=== PATIENT | male | born 1965 | race African-American/Black ===

== ENCOUNTER 2021-09-25 20:05 | Inpatient (IN) | payer OTHER ==
[~2021-09-25] VITALS: Ht 185.4 cm; Wt 98.5 kg
[2021-09-25] MEDS ORDERED: ACCU-CHEK COMFORT CURVE STRIP VI ONE (20:15)
[2021-09-25] MEDS ORDERED: SODIUM CHLORIDE 0.9% 1,000 ML IV ONE (20:45)
[2021-09-25] MEDS ORDERED: LORazepam 2MG/ML-1ML VIAL IV ONE (20:45)
[2021-09-25 20:55] LABS: Basophils # (auto) 0 10 ^3/uL (0-0.2); Basophils % (auto) 0.4 % (0.0-2.0); Eosinophils # (auto) 0.1 10 ^3/uL (0-0.8); Eosinophils % (auto) 1.7 % (0.0-7.0); Hematocrit 45.5 % (41.0-53.0); Hemoglobin 15.2 g/dL (13.5-17.5); Lymphocytes # (auto) 1.5 10 ^3/uL (0.4-5.4); Lymphocytes % (auto) 19.2 % (10.0-50.0); Mean Corpuscular Hemoglobin 31.9 pg (28.0-32.0); Mean Corpuscular Hgb Conc. 33.5 g/dL (32.0-36.0); Mean Corpuscular Volume 95.2 fL (80.0-100.0); Monocytes # (auto) 0.8 10 ^3/uL (0-1.3); Monocytes % (auto) 10.1 % (0.0-12.0); Neutrophils # (auto) 5.4 10 ^3/uL (1.6-8.6); Neutrophils % (auto) 68.6 % (37.0-80.0); Nucleated Red Blood Cells % 0.1 %; Red Blood Cells 4.78 10^6/uL (4.5-5.90); Red Cell Distribution Width 12.9 % (11.8-14.3); White Blood Cell 7.9 10^3/uL (4.4-10.8)
[2021-09-25 21:14] LABS: INR 1.05 (0.9-1.15); Partial Thromboplastin Time 26.6 sec (23.6-33.0)
[2021-09-25 21:14] LABS: Albumin 3.5 g/dL (3.4-5.0); Anion Gap 7 (5-15); Blood Alcohol < 3.0 mg/dL (0-5); Blood Urea Nitrogen 20 mg/dL (7-18); Calcium 8.9 mg/dL (8.5-10.1); Carbon Dioxide 28 mmol/L (21-32); Chloride 107 mmol/L (98-107); Glucose 187 mg/dL (74-106); Potassium 3.8 mmol/L (3.5-5.1); Sodium 142 mmol/L (136-145)
[2021-09-25 21:16] LABS: Alanine Aminotransferase 29 U/L (16-61); Aspartate Aminotransferase 11 U/L (15-37); BUN/Creatinine Ratio 12.4; GFR African American 57 mL/min; GFR Non-African American 47 mL/min
[2021-09-25 21:18] LABS: Alkaline Phosphatase 121 U/L (45-117); Bilirubin, Total 0.3 mg/dL (0.2-1.0); Total Protein 7.3 g/dL (6.4-8.2)
[2021-09-25] MEDS ORDERED: NIFEdipine 10 MG CAP PO ONE (23:00)
[2021-09-26 00:46] LABS: Urine Bacteria NONE SEEN /hpf (None Seen); Urine Blood Negative /uL (Negative); Urine Hyaline Cast FEW /lpf (0 - 2); Urine Mucus FEW (None Seen); Urine Specific Gravity 1.032 (1.001-1.035); Urine WBC 2 /hpf (0 - 3)
[2021-09-26 01:00] LABS: Alcohol, Urine < 3.0 mg/dL (0-10); Amphetamine Screen, Urine NEGATIVE (NEGATIVE); Barbiturate Scree,Urine NEGATIVE (NEGATIVE); Benzodiazephine Screen, Urine NEGATIVE (NEGATIVE); Cannabinoid Screen, Urine NEGATIVE (NEGATIVE); Cocaine Screen, Urine NEGATIVE (NEGATIVE); Opiate Scree,Urine NEGATIVE (NEGATIVE); Phencyclidine Screen, Urine NEGATIVE (NEGATIVE)
[2021-09-26] MEDS ORDERED: DEXTROSE (50%) 50ML SYRG IV PRN (06:15)
[2021-09-26] MEDS ORDERED: MORPHINE SULFATE INJECTION 2 MG/ML SYRG IV PRN (06:15)
[2021-09-26] MEDS ORDERED: NITROGLYCERIN 0.4 MG SL TAB SL PRN (06:15)
[2021-09-26] MEDS ORDERED: ONDANSETRON HCL 4 MG/2 ML VIAL IV PRN (06:15)
[2021-09-26] MEDS ORDERED: ACETAMINOPHEN 325 MG TAB PO PRN (06:15)
[2021-09-26] MEDS: InsuLIN REG 1unit/0.01ml Soln (100units/ml) SC SCH ×4 (07:52→23:24)
[2021-09-26] MEDS: ACCU-CHEK COMFORT CURVE STRIP VI SCH ×4 (07:52→22:37)
[2021-09-26] MEDS: cloNIDine HCL 0.1 MG TAB PO PRN ×3 (08:27→17:44)
[2021-09-26] MEDS: PANTOPRAZOLE 40 MG TAB PO SCH (09:57)
[2021-09-26] MEDS: CLOPIDOGREL BISULFATE 75 MG TAB PO SCH (09:57)
[2021-09-26] MEDS: LISINOPRIL 20 MG TAB PO SCH (09:57)
[2021-09-26] MEDS ORDERED: ATOR-47 PO (15:37)
[2021-09-26] MEDS ORDERED: GLIP5TAB12 PO (15:37)
[2021-09-26] MEDS ORDERED: CYAN-17 PO (15:37)
[2021-09-26] MEDS ORDERED: CLOP75TA70 PO (15:37)
[2021-09-26] MEDS ORDERED: METF-370 PO (15:37)
[2021-09-26] MEDS ORDERED: LISI20TA28 PO (15:37)
[2021-09-26 17:00] VITALS: BP 170/104
[2021-09-26 18:46] VITALS: BP 166/101
[2021-09-26] MEDS ORDERED: LORazepam 2MG/ML-1ML VIAL IV ONE (19:00)
[2021-09-26] MEDS ORDERED: LABETALOL HCL 5 MG/ML 4ML SYRINGE IV ONE (19:00)
[2021-09-26] MEDS ORDERED: LORazepam 2MG/ML-1ML VIAL IV PRN (21:30)
[2021-09-26] MEDS ORDERED: HALOPERIDOL LACTATE 5 MG/ML INJ VIAL IM PRN (21:30)
[2021-09-26 22:00] VITALS: BP 176/104
[2021-09-26] MEDS: ATORVASTATIN 20 MG TAB PO SCH (22:36)
[2021-09-26] MEDS: LACOSAMIDE 50 MG TAB PO SCH (22:36)
[2021-09-26 22:55] LABS: Cholesterol 181 mg/dL (< 200); HDL Cholesterol 34 mg/dL (40-59); LDL Cholesterol 126 mg/dL (< 100); Triglycerides 185 mg/dL (< 150)
[2021-09-27] VITALS (7 sets, daily range): BP systolic 143–190; BP diastolic 84–130
[2021-09-27] MEDS: cloNIDine HCL 0.1 MG TAB PO PRN ×2 (01:10→14:33)
[2021-09-27 06:02] LABS: Basophils # (auto) 0 10 ^3/uL (0-0.2); Basophils % (auto) 0.3 % (0.0-2.0); Eosinophils # (auto) 0.1 10 ^3/uL (0-0.8); Eosinophils % (auto) 2.3 % (0.0-7.0); Hematocrit 41.8 % (41.0-53.0); Hemoglobin 14.1 g/dL (13.5-17.5); Lymphocytes # (auto) 1.5 10 ^3/uL (0.4-5.4); Lymphocytes % (auto) 26.7 % (10.0-50.0); Mean Corpuscular Hemoglobin 32.1 pg (28.0-32.0); Mean Corpuscular Hgb Conc. 33.6 g/dL (32.0-36.0); Mean Corpuscular Volume 95.4 fL (80.0-100.0); Monocytes # (auto) 0.5 10 ^3/uL (0-1.3); Monocytes % (auto) 8.2 % (0.0-12.0); Neutrophils # (auto) 3.5 10 ^3/uL (1.6-8.6); Neutrophils % (auto) 62.5 % (37.0-80.0); Red Blood Cells 4.38 10^6/uL (4.5-5.90); Red Cell Distribution Width 12.9 % (11.8-14.3); White Blood Cell 5.7 10^3/uL (4.4-10.8)
[2021-09-27 06:22] LABS: Calcium 8.6 mg/dL (8.5-10.1)
[2021-09-27 06:25] LABS: BUN/Creatinine Ratio 17.5
[2021-09-27] MEDS: ACCU-CHEK COMFORT CURVE STRIP VI SCH ×4 (06:39→21:25)
[2021-09-27] MEDS: hydrALAZINE HCL 20 MG/ML VL IV PRN ×2 (06:39→16:25)
[2021-09-27] MEDS: InsuLIN REG 1unit/0.01ml Soln (100units/ml) SC SCH ×4 (06:54→21:25)
[2021-09-27] MEDS: PANTOPRAZOLE 40 MG TAB PO SCH (09:01)
[2021-09-27] MEDS: CLOPIDOGREL BISULFATE 75 MG TAB PO SCH (09:01)
[2021-09-27] MEDS: LACOSAMIDE 50 MG TAB PO SCH ×2 (09:01→21:25)
[2021-09-27] MEDS: LISINOPRIL 20 MG TAB PO SCH (09:02)
[2021-09-27] MEDS ORDERED: LORazepam 2MG/ML-1ML VIAL IV PRN (18:15)
[2021-09-27] MEDS: SODIUM CHLORIDE 0.9% 1,000 ML IV SCH (18:51)
[2021-09-27] MEDS: ATORVASTATIN 20 MG TAB PO SCH (21:25)
[2021-09-28 05:00] VITALS: BP 144/88
[2021-09-28] MEDS: InsuLIN REG 1unit/0.01ml Soln (100units/ml) SC SCH ×4 (06:40→21:23)
[2021-09-28] MEDS: SODIUM CHLORIDE 0.9% 1,000 ML IV SCH ×2 (06:46→14:15)
[2021-09-28] MEDS: ACCU-CHEK COMFORT CURVE STRIP VI SCH ×4 (06:46→21:27)
[2021-09-28 09:00] VITALS: BP 166/95
[2021-09-28] MEDS: PANTOPRAZOLE 40 MG TAB PO SCH (09:56)
[2021-09-28] MEDS: LISINOPRIL 20 MG TAB PO SCH (09:56)
[2021-09-28] MEDS: LACOSAMIDE 50 MG TAB PO SCH ×2 (09:56→21:22)
[2021-09-28] MEDS: CLOPIDOGREL BISULFATE 75 MG TAB PO SCH (09:56)
[2021-09-28] MEDS ORDERED: GADOTERATE MEG 10 MMOL/20ml INJ (0.5MMOL/ml) IV ONE (11:32)
[2021-09-28 13:00] VITALS: BP 194/113
[2021-09-28] MEDS: hydrALAZINE HCL 20 MG/ML VL IV PRN (14:45)
[2021-09-28] MEDS: cloNIDine HCL 0.1 MG TAB PO PRN (15:41)
[2021-09-28 17:00] VITALS: BP 164/99
[2021-09-28] MEDS: ATORVASTATIN 20 MG TAB PO SCH (21:11)
[2021-09-28 22:00] VITALS: BP 144/95
[2021-09-29] MEDS: ACCU-CHEK COMFORT CURVE STRIP VI SCH (07:26)
[2021-09-29] MEDS: InsuLIN REG 1unit/0.01ml Soln (100units/ml) SC SCH (07:30)
[2021-09-30] MEDS ORDERED: LISI40TA11 PO (09:34)
[2021-09-30] MEDS ORDERED: LISI20TA28 PO (18:28)
[2021-10-01 06:06] LABS: RPR Non Reactive (Non Reactive)
== END 2021-09-29 08:50 | disposition left against medical advice (07) | DRG 64 ==
LOC: ER 20:08 → TELE 09-26 06:12 → TELE-WESTW 09-26 10:31
PROVIDERS: ADMIT Nurse Practitioner; ATTEND Internal Medicine
DX: I63.9 Cerebral infarction, unspecified (principal); G93.41 Metabolic encephalopathy; G40.209 Localization-related (focal) (partial) symptomatic epilepsy and epileptic syndromes with complex partial seizures, not intractable, without status epilepticus; I13.0 Hypertensive heart and chronic kidney disease with heart failure and stage 1 through stage 4 chronic kidney disease, or unspecified chronic kidney disease; I50.20 Unspecified systolic (congestive) heart failure; E78.5 Hyperlipidemia, unspecified; Z20.822 Contact with and (suspected) exposure to COVID-19; E11.22 Type 2 diabetes mellitus with diabetic chronic kidney disease; F17.210 Nicotine dependence, cigarettes, uncomplicated; Z53.29 Procedure and treatment not carried out because of patient's decision for other reasons; E78.00 Pure hypercholesterolemia, unspecified; E66.01 Morbid (severe) obesity due to excess calories; N18.9 Chronic kidney disease, unspecified; Z79.02 Long term (current) use of antithrombotics/antiplatelets; Z79.899 Other long term (current) drug therapy; Z80.1 Family history of malignant neoplasm of trachea, bronchus and lung; Z82.49 Family history of ischemic heart disease and other diseases of the circulatory system; Z83.3 Family history of diabetes mellitus; Z86.14 Personal history of Methicillin resistant Staphylococcus aureus infection; Z86.16 Personal history of COVID-19
CPT/HCPCS: 36415; 70450; 70551; 70553; 71045; 80048; 80053; 80061; 80307; 80320; 81001; 82962; 83735; 84484; 85025; 85610; 85730; 86592; 87426; 93005; 93306; 93886; 95819; 96361; 96374; 97116; 97163; G0378; J1815; J3490

== ENCOUNTER 2021-09-29 18:56 | Inpatient (IN) | payer OTHER ==
[~2021-09-29] VITALS: Ht 190.5 cm; Wt 87.3 kg
[~2021-09-29 18:56] MED LIST: ATOR-47 PO; CLOP75TA70 PO; CYAN-17 PO; GLIP5TAB12 PO; LISI20TA28 PO; METF-370 PO
[2021-09-29 21:46] LABS: Basophils # (auto) 0 10 ^3/uL (0-0.2); Basophils % (auto) 0.6 % (0.0-2.0); Eosinophils # (auto) 0.2 10 ^3/uL (0-0.8); Hematocrit 45.2 % (41.0-53.0); Hemoglobin 15.2 g/dL (13.5-17.5); Lymphocytes # (auto) 1.6 10 ^3/uL (0.4-5.4); Lymphocytes % (auto) 21.7 % (10.0-50.0); Mean Corpuscular Hemoglobin 31.9 pg (28.0-32.0); Mean Corpuscular Hgb Conc. 33.7 g/dL (32.0-36.0); Mean Corpuscular Volume 94.7 fL (80.0-100.0); Monocytes # (auto) 0.7 10 ^3/uL (0-1.3); Monocytes % (auto) 9.1 % (0.0-12.0); Neutrophils % (auto) 66.6 % (37.0-80.0); Nucleated Red Blood Cells % 0.2 %; Red Blood Cells 4.77 10^6/uL (4.5-5.90); White Blood Cell 7.5 10^3/uL (4.4-10.8)
[2021-09-29 22:03] LABS: Albumin 3.9 g/dL (3.4-5.0); Calcium 9.1 mg/dL (8.5-10.1); Magnesium 2.3 mg/dL (1.6-2.6); Potassium 4.2 mmol/L (3.5-5.1)
[2021-09-29 22:08] LABS: BUN/Creatinine Ratio 14.2; Bilirubin, Total 0.2 mg/dL (0.2-1.0); Total Protein 7.8 g/dL (6.4-8.2)
[2021-09-29] MEDS ORDERED: NITROGLYCERIN 0.4 MG SL TAB SL PRN (23:00)
[2021-09-29] MEDS ORDERED: MORPHINE SULFATE INJECTION 2 MG/ML SYRG IV PRN (23:00)
[2021-09-29] MEDS ORDERED: DOCUSATE SOD 100 MG CAP PO PRN (23:00)
[2021-09-29] MEDS ORDERED: TEMAZEPAM 15 MG CAP PO PRN (23:00)
[2021-09-30 06:16] LABS: Barbiturate Scree,Urine NEGATIVE (NEGATIVE); Benzodiazephine Screen, Urine NEGATIVE (NEGATIVE); Cannabinoid Screen, Urine NEGATIVE (NEGATIVE)
[2021-09-30 06:19] LABS: Alcohol, Urine < 3.0 mg/dL (0-10); Amphetamine Screen, Urine NEGATIVE (NEGATIVE); Cocaine Screen, Urine NEGATIVE (NEGATIVE); Opiate Scree,Urine NEGATIVE (NEGATIVE); Phencyclidine Screen, Urine NEGATIVE (NEGATIVE)
[2021-09-30] MEDS ORDERED: ACETAMINOPHEN 325 MG TAB PO ONE (09:15)
[2021-09-30] MEDS ORDERED: ACETAMINOPHEN 325 MG TAB PO PRN (09:15)
[2021-09-30] MEDS ORDERED: LISI40TA11 PO (09:34)
[2021-09-30] MEDS: hydrALAZINE HCL 20 MG/ML VL IV PRN ×2 (09:36→22:41)
[2021-09-30] MEDS: ENOXAPARIN SOD 40 MG/0.4 ML SYRINGE SC SCH (09:37)
[2021-09-30 09:38] LABS: Albumin 3.7 g/dL (3.4-5.0); Calcium 9.4 mg/dL (8.5-10.1); Potassium 4.8 mmol/L (3.5-5.1)
[2021-09-30 09:39] LABS: Basophils # (auto) 0 10 ^3/uL (0-0.2); Basophils % (auto) 0.2 % (0.0-2.0); Eosinophils # (auto) 0.1 10 ^3/uL (0-0.8); Eosinophils % (auto) 0.9 % (0.0-7.0); Hematocrit 46.2 % (41.0-53.0); Hemoglobin 15.7 g/dL (13.5-17.5); Lymphocytes # (auto) 0.9 10 ^3/uL (0.4-5.4); Lymphocytes % (auto) 10.1 % (10.0-50.0); Mean Corpuscular Hemoglobin 32.7 pg (28.0-32.0); Mean Corpuscular Volume 96.3 fL (80.0-100.0); Monocytes # (auto) 0.5 10 ^3/uL (0-1.3); Monocytes % (auto) 6.4 % (0.0-12.0); Neutrophils # (auto) 7.1 10 ^3/uL (1.6-8.6); Neutrophils % (auto) 82.4 % (37.0-80.0); Nucleated Red Blood Cells % 0.1 %; White Blood Cell 8.6 10^3/uL (4.4-10.8)
[2021-09-30 09:42] LABS: Bilirubin, Total 0.3 mg/dL (0.2-1.0)
[2021-09-30] MEDS ORDERED: ONDANSETRON HCL 4 MG/2 ML VIAL IV ONE (14:15)
[2021-09-30] MEDS ORDERED: MORPHINE SULFATE INJECTION 2 MG/ML SYRG IV ONE (14:15)
[2021-09-30 16:30] VITALS: BP_SYST 131; BP_SYST 145; BP_DIAS 91; BP_DIAS 93
[2021-09-30] MEDS ORDERED: LISI20TA28 PO (18:28)
[2021-09-30 20:00] VITALS: BP 154/99
[2021-09-30 22:00] VITALS: BP 154/99
[2021-10-01 05:00] VITALS: BP 140/53
[2021-10-01 09:00] VITALS: BP 150/97
[2021-10-01] MEDS: ENOXAPARIN SOD 40 MG/0.4 ML SYRINGE SC SCH (11:18)
[2021-10-01] MEDS: hydrALAZINE HCL 20 MG/ML VL IV PRN (12:20)
[2021-10-01 13:00] VITALS: BP_SYST 104
[2021-10-01 13:45] VITALS: BP 131/87
[2021-10-01] MEDS ORDERED: DEXTROSE (50%) 50ML SYRG IV PRN (15:45)
[2021-10-01 17:00] VITALS: BP 151/89
[2021-10-01] MEDS ORDERED: InsuLIN REG 1unit/0.01ml Soln (100units/ml) SC SCH (17:00)
[2021-10-01] MEDS ORDERED: ACCU-CHEK COMFORT CURVE STRIP VI SCH (17:00)
[2021-10-01] MEDS ORDERED: INSULIN LISPRO (HUMAN) 100 UNITS/ML ML SC SCH (17:31)
[2021-10-01] MEDS ORDERED: ATORVASTATIN 20 MG TAB PO SCH (22:00)
[2021-10-01 22:26] VITALS: BP 142/89
[2021-10-02] MEDS ORDERED: LISINOPRIL 20 MG TAB PO SCH (10:00)
[2021-10-02] MEDS ORDERED: CLOPIDOGREL BISULFATE 75 MG TAB PO SCH (10:00)
== END 2021-10-01 23:35 | disposition home or self-care (01) | DRG 178 ==
LOC: ER 18:58 → TELE 23:00 → TELE-EAST 09-30 16:41
PROVIDERS: ADMIT Internal Medicine; ATTEND Internal Medicine
DX: U07.1 COVID-19 (principal); I50.20 Unspecified systolic (congestive) heart failure; I16.9 Hypertensive crisis, unspecified; I25.110 Atherosclerotic heart disease of native coronary artery with unstable angina pectoris; E11.9 Type 2 diabetes mellitus without complications; F17.210 Nicotine dependence, cigarettes, uncomplicated; G30.9 Alzheimer's disease, unspecified; F02.80 Dementia in other diseases classified elsewhere, unspecified severity, without behavioral disturbance, psychotic disturbance, mood disturbance, and anxiety; G40.909 Epilepsy, unspecified, not intractable, without status epilepticus; E66.01 Morbid (severe) obesity due to excess calories; I11.0 Hypertensive heart disease with heart failure; Z79.02 Long term (current) use of antithrombotics/antiplatelets; Z79.899 Other long term (current) drug therapy; Z82.49 Family history of ischemic heart disease and other diseases of the circulatory system; Z83.3 Family history of diabetes mellitus; Z86.14 Personal history of Methicillin resistant Staphylococcus aureus infection; Z86.73 Personal history of transient ischemic attack (TIA), and cerebral infarction without residual deficits; Z80.1 Family history of malignant neoplasm of trachea, bronchus and lung; Z68.29 Body mass index [BMI] 29.0-29.9, adult
CPT/HCPCS: 36415; 70450; 71045; 80053; 80307; 80320; 82962; 83735; 83880; 84484; 85025; 87426; 93005; 96372; 96374; 96375; G0378; J1815; J2405